=== PATIENT | female | born 1970 | race Hispanic/Latino ===

== ENCOUNTER 2016-07-23 15:09 | Emergency (ER) | payer OTHER ==
[~2016-07-23] VITALS: Ht 160 cm; Wt 72.6 kg
[~2016-07-23 15:09] MED LIST: DOCUSATE SODIU100 MG PO; EPIPEN 2-PAK1 MG/ML IM; HYDROMORPHONE HC2 MG PO; MAGNESIUM CITR100 MG PO; MILK OF MAGNESI30 ML PO; MOTRIN 800MG T800 MG PO; MULTIVITAMIN1 TAB PO; MYLICON IN40 MG/0.6 PO; PREDNISONE 20MG20 MG PO; VITAMIN D5000 IU PO; ZOFRAN 2MG/4 MG/2 ML IV
[2016-07-23 15:14] VITALS: BP 137/96
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
[2016-07-23] MEDS ORDERED: DILAUDID2 M1 PO (17:09)
[2016-07-23] MEDS ORDERED: IBUPROFEN800 M1 PO (17:09)
[2016-07-23] MEDS ORDERED: MEDROL4 M2 PO (17:09)
== END 2016-07-23 17:29 ==
LOC: ERH 15:09
DX: S39.012A Strain of muscle, fascia and tendon of lower back, initial encounter (principal); V49.60XA Unspecified car occupant injured in collision with unspecified motor vehicles in traffic accident, initial encounter